=== PATIENT | female | born 1990 | race Caucasian/White ===

== ENCOUNTER 2017-08-31 17:35 | Outpatient (CLI) | payer MEDICAID ==
[2017-08-31 18:12] LABS: APPEARANCE,URINE CLEAR; BILIRUBIN,URINE NEGATIVE (NEGATIVE); COLOR,URINE YELLOW; GLUCOSE, URINE NEGATIVE (NEGATIVE); KETONES,URINE NEGATIVE (NEGATIVE); LEUKOCYTE ESTERASE,URINE NEGATIVE (NEGATIVE); NITRITE,URINE NEGATIVE (NEGATIVE); PROTEIN,URINE NEGATIVE (NEGATIVE); URINE SPECIFIC GRAVITY 1.006; UROBILINOGEN,URINE NEGATIVE mg/dL (<2.0)
[2017-08-31 18:24] LABS: AMNISURE (ROM) NEGATIVE (NEGATIVE)
[2017-08-31 18:26] LABS: URINE AMPHETAMINES SCREEN NEGATIVE; URINE BARBITURATES SCREEN NEGATIVE; URINE BENZODIAZEPINES SCREEN NEGATIVE; URINE COCAINE SCREEN NEGATIVE; URINE MARIJUANA (THC) SCREEN NEGATIVE; URINE METHADONE SCREEN NEGATIVE; URINE PHENCYCLIDINE SCREEN NEGATIVE
--- NOTE | 2017-08-31 19:08 | Non Stress Test Report ---
Non Stress Test Datetime Report Generated by CPN: 08/31/2017 19:08 DEMOGRAPHIC EGA NST: 34.1 INDICATION Indication for Study: Ordered by Provider Indication for Study (NST) Other: LC MONITORING Monitor Explained: Monitor Explained; Test Explained; Patient Verbalized Understanding Time on Monitor: 08/31/2017 18:01 Time off Monitor: 08/31/2017 18:48 NST Duration: 47 NST INTERVENTIONS NST Interventions: PO Hydration Physician Notified NST: Dr. Henriquez BABY A: [id number] BABY A Movement : Present Contraction Frequency : irregular FHR Baseline : 140 Accelerations : 15X15 Decelerations : None Variability : Moderate 6-25bpm NST Review: Meets Criteria for Reactive NST NST Review and Verified By : Roberta Bettencourt RN NST Results: Reactive NST REPORT Report Trigger: Send Report
--- NOTE | 2017-08-31 19:15 | PDOC PROGRESS REPORT ---
Subjective Progress Note for:: 08/31/17 Subjective:: pt came in for Labor check from [facility] for r/o PROM at 34wks Reason For Visit: 34+1ega presents with limited care at [facility] for evaluation of SROM. She was seen at [facility] and fern x 2 neg, nitrizine x 2 neg, neg pooling x 2, no pooling on exam after sitting up for 2 hours. US apparently done at [facility] with MERRY 6 and she left [facility] AMA - refusing repeat MERRY after IVF, and refused repeat exam (would be 3rd exam) due to childcare issues. She called our Labor and delivery stating that she had broke her water again on the way here for second opinion. Upon arrival here fern and amnisure done immediately which returned as negative. Records requested from [facility] = pt signed release upon arrival to floor. Physical Exam - Physical Exam Vital Signs: Intake & Output 08/30/17 08/31/17 09/01/17 06:59 06:59 06:59 Weight 85.7 kg General appearance: PRESENT: no acute distress, well-developed, well-nourished Head exam: PRESENT: atraumatic, normocephalic Rectal exam: PRESENT: deferred Neurological exam: PRESENT: alert Psychiatric exam: PRESENT: other - initially patient was agreeable then suddenly became upset and refused exam and stormed out after signing AMA paperwork. Result Laboratory Results: 08/31/17 17:45 Urine Color YELLOW Urine Appearance CLEAR Urine pH 7.0 Ur Specific [place] 1.006 Urine Protein NEGATIVE Urine Glucose (UA) NEGATIVE Urine Ketones NEGATIVE Urine Blood NEGATIVE Urine Nitrite NEGATIVE Ur Leukocyte Esterase NEGATIVE Urine WBC (Auto) 1 Amnisure neg, Fern neg Assessment & Plan - Diagnosis (1) Supervision of normal in third trimester Qualifiers: Normal : other normal Qualified Code(s): Z34.83 - Encounter for supervision of other normal , third trimester Is this a current diagnosis for this admission?: Yes Plan: Explained to patient that Fern and amnsiure and actim prom were negative. Pt offered IVF and repeat MERRY. She refused these stating that she wanted repeat Fern and amnisure. I came in and thoroughly explained poss causes including discharge (routine vs BV vs yeast) and offered additional testing for GC/CHlam and wet prep. Pt initially agreed to these and during process of converting the bed in order to do SSE for GC/Chlam, Wet prep (and the repeat Fern and amnisure that she requested) she became agitated and refused the exam. Pt just before this asked for US and I attempted to explain that after these were completed we could do IVF and repeat US for eval of her MERRY. She asked what would cause a low MERRY - to which I explained that low MERRY does not always mean that her water is broken but we could re-eval after fluids. Also during this process of changing bed to prepare for exam she asked if we could tell if her ctx were doing any good. I reviewed with her that her ctx were not palpating strong and appeared to be B-H and not labor ctx and that having repetitive exams now at multiple hositpals could be contributing to her uterine irritability (also that BV or other infections could do this as well). I also attempted to explain to her that if her water was not broken that would not induce her since babies at 34 weeks need more time to mature unless medically indicated. Zoila Bettencourt RN was in room for entire conversation. Pt refused exam, called and then hung up on him, barely had time to sign AMA form and the walked forcefully from her room with her RN following her. - Time Time Spent with patient: Less than 15 minutes Medications reviewed and adjusted accordingly: Yes Anticipated discharge: Home Disposition: AMA - Inpatient Certification Based on my medical assessment, after consideration of the patient's comorbidities, presenting symptoms, or acuity I expect that the services needed warrant INPATIENT care.: No I certify that my determination is in accordance with my understanding of Medicare's requirements for reasonable and necessary INPATIENT services [42 CFR 412.3e].: No - Plan Summary Plan Summary: Pt left AMA - was not discharge. Refused exam. RL6 placed.
== END 2017-08-31 18:50 | disposition home or self-care (01) ==
LOC: LC 17:35
PROVIDERS: ATTEND Student in an Organized Health Care Education/Training Program
PROC: 4A1HXCZ Monitoring of Products of Conception, Cardiac Rate, External Approach (ICD-10-PCS; principal; 2017-08-31)
DX: Z34.93 Encounter for supervision of normal pregnancy, unspecified, third trimester (principal)
CPT/HCPCS: 59025; 84112; 81001; 80307; Q0114